=== PATIENT | female | born 1970 | race Caucasian/White ===

== ENCOUNTER 2017-08-24 05:15 | Inpatient (IN) ==
[2017-08-24 06:00] LABS: Basophils % 0.3 %; Eosinophils % 0.4 %; Hematocrit 36.2 % (35.3-44.9); Immature Granulocytes % 0.3 % (0-4); Lymphocytes # 2.3 K/mcL (0.6-4.6); Lymphocytes % 32.8 %; Mean Corpuscular HGB Conc 33.1 g/dL (31.6-35.5); Mean Corpuscular Hemoglobin 30.2 pg (28.0-33.3); Mean Platelet Volume 9.4 fL (9.4-12.4); Monocytes # 0.5 K/mcL (0.0-1.3); Monocytes % 7.7 %; Platelet Count 257 K/mcL (140-400); Red Blood Count 3.98 M/mcL (3.82-4.97); Red Cell Distribution Width 12.6 % (11.5-14.5); Segmented Neutrophils % 58.5 %
[2017-08-24 06:02] LABS: Bilirubin,Urine Negative (Negative); Blood,Urine Negative (Negative); Clarity,Urine Cloudy (Clear); Color,Urine Yellow (Yellow); Glucose,Urine (UA) Normal (Normal); Ketones,Urine Negative (Negative); Leukocyte Esterase,Urine Negative (Negative); Nitrite,Urine Negative (Negative); Protein,Urine Negative (Neg-Trace); Specific Gravity,Urine 1.026 (1.010-1.025); Urobilinogen,Urine Normal (Normal)
[2017-08-24 06:09] LABS: Amphetamine Screen,Urine Positive ng/mL (Cutoff=1000); Bacteria,Urine Moderate per hpf (None-Few); Barbiturate Screen,Urine Negative ng/mL (Cutoff=200); Benzodiazepines Screen,Urine Negative ng/mL (Cutoff=200); Cannabinoid Screen,Urine Positive ng/mL (Cutoff = 50); Cocaine Screen,Urine Negative ng/mL (Cutoff= 300); Hyaline Casts,Urine None Seen per lpf (None-Few); Opiate Screen,Urine Negative ng/mL (Cutoff=300); Phencyclidine Screen,Urine Negative ng/mL (Cutoff=25); Squamous Epithelial Cell,Urine Many per lpf (None-Few)
[2017-08-24 06:16] LABS: BUN/Creatinine Ratio 17 (6-26); Blood Urea Nitrogen 14 mg/dL (7-20); Calcium 9.1 mg/dL (8.6-10.8); Carbon Dioxide 29 mEq/L (19-29); Chloride 105 mEq/L (98-109); Glucose 104 mg/dL (70-99); Osmolality,Calculated 289 (280-300); Potassium 4.3 mEq/L (3.5-4.5); Sodium 139 mEq/L (136-145); eGFR For African Americans > 60 (> 60); eGFR For Non-African Americans > 60 (> 60)
[2017-08-24 06:17] LABS: Ethanol < 10 mg/dL (0-10); Salicylate < 5.0 mg/dL (15-30)
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
[2017-08-24] MEDS ORDERED: hydrOXYzine pamoate 25 MG CAPSULE PO PRN (12:37)
[2017-08-24] MEDS ORDERED: Haloperidol Lactate 5 MG/ML VIAL IM PRN (12:37)
[2017-08-24] MEDS ORDERED: *HR* LORazepam 2 MG/ML VIAL IM PRN (12:37)
[2017-08-24] MEDS ORDERED: MOM Conc 10 ML UD.LIQ PO PRN (12:37)
[2017-08-24] MEDS ORDERED: *HR* LORazepam 1 MG TABLET PO PRN (12:37)
[2017-08-24] MEDS ORDERED: Mag Hydrox/Al Hydrox/Simeth 30 ML UDC PO PRN (12:37)
[2017-08-24] MEDS ORDERED: Ibuprofen 400 MG TABLET PO PRN (12:37)
[2017-08-24] MEDS: Nicotine 21 MG PATCH.TD24 TD SCH (15:36)
[2017-08-24] MEDS: Gabapentin 300 MG CAPSULE PO SCH ×2 (15:36→20:28)
[2017-08-24] MEDS: Mirtazapine 15 MG TABLET PO SCH (20:28)
[2017-08-24] MEDS ORDERED: traZODone 50 MG TABLET PO PRN (21:00)
[2017-08-25] MEDS: Nicotine 21 MG PATCH.TD24 TD SCH (09:57)
[2017-08-25] MEDS: Gabapentin 300 MG CAPSULE PO SCH ×3 (09:58→21:04)
--- NOTE | 2017-08-25 12:30 | Psychiatry Progress Note ---
Date of Encounter: 08/25/17 Time of Encounter: 10:50 Subjective Interval history: Pratima is seen today for follow-up of her depression as well as her homicidal ideations. Patient reports that her mood has improved somewhat since admission to the hospital. She still feels depressed and anxious at times. She does report improvement since starting the medications especially the Remeron. Patient reports improvement in her sleep cycle. Her appetite has been good since arrival to the hospital. She does admit to a lot of stress especially relating to her boyfriend. Boyfriend is still staying at her home and she does not want him to be there and she is afraid to go back to her home while he is there. She thinks she may have a friend she can stay with her when she is stable for discharge. Patient will be looking into getting a restraining order against her boyfriend. Review of Systems Constitutional: Denies: fever, chills, weakness, weight change Eyes: Denies: eye pain, vision change Ears, Nose, Throat: Denies: ear pain, throat pain, dental pain, hearing loss, congestion Cardiovascular: Denies: chest pain, palpitations, dyspnea on exertion Respiratory: Denies: cough, dyspnea, wheezes Gastrointestinal: Denies: abdominal pain, nausea, vomiting, diarrhea, constipation Musculoskeletal: Denies: joint swelling, joint pain Neurological: Denies: headache, weakness, numbness, memory loss Psychiatric: Reports: depression, anxiety, change in appetite, anhedonia, hopelessness, irritability, panic attacks. Denies: suicidal ideation, homicidal ideation Objective: Exam Patient orientation: Yes Person, Yes Time, Yes Place Level of alertness: Alert Patient appearance: Appropriate Behavior: calm, cooperative Psychomotor activity: Normal Eye contact: Maintains Eye Contact Mood description: Depressed Affect description: dysphoric Speech pattern: Normal rate, Normal rhythm, Normal tone Speech volume: Normal Thought process: Intact, Logical Thought content: No Suicidal ideation, No Homicidal ideation Perceptual disturbances: No Auditory hallucinations, No Visual hallucinations Judgment: Limited Insight: Minimal Results - Vital Signs Vital Signs: Temp Pulse Resp BP Pulse Ox 97.6 F 84 20 89/57 99 08/25/17 09:00 08/25/17 09:00 08/25/17 09:00 08/25/17 09:00 08/24/17 09:31 Assessment and Plan (1) MDD (major depressive disorder), recurrent severe, without psychosis Current visit: Yes Status: Acute Plan: Continue hospitalization, Close observation, Suicide Precautions per unit protocol, Encourage participation in unit milieu, Group Therapy, Monitor sleep, Monitor appetite Additional Plan: Continue current medications. Patient mood improving slightly. She now denies homicidal ideations. Denies access to guns or weapons. She would like to get a restraining order on her boyfriend but does not want to harm him. Continue to monitor with plans for discharge tomorrow if patient continues to improve. . Risks, benefits, side effects, alternatives discussed w/pt: Yes Patient agreeable to treatment: Yes (2) PTSD (post-traumatic stress disorder) Current visit: Yes Status: Acute Plan: Continue hospitalization, Close observation, Suicide Precautions per unit protocol, Encourage participation in unit milieu, Group Therapy, Monitor sleep, Monitor appetite Additional Plan: Prazosin helping with nightmares and sleep. Monitor for side effects. Risks, benefits, side effects, alternatives discussed w/pt: Yes Patient agreeable to treatment: Yes (3) Polysubstance abuse Current visit: Yes Status: Acute Additional Plan: Encouraged patient to discontinue drug use. Risks, benefits, side effects, alternatives discussed w/pt: Yes Patient agreeable to treatment: Yes Consult Discharge Plan - Plan Referrals: NONE,PCP [Primary Care Provider] -
[2017-08-25] MEDS: Mirtazapine 15 MG TABLET PO SCH (21:04)
[2017-08-26] MEDS: Gabapentin 300 MG CAPSULE PO SCH (08:59)
[2017-08-26] MEDS: Nicotine 21 MG PATCH.TD24 TD SCH (08:59)
[2017-08-26 10:12] VITALS: BP 99/65
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
== END 2017-08-26 12:00 | disposition home or self-care (01) | DRG 751 ==
LOC: EMEROO 05:15 → 1ANU 09:17 → INTOOBSV 09:17 → 1ANU 10:40 → SUATTDRO 08-25 09:43
PROVIDERS: ADMIT Psychiatry & Neurology Psychiatry; ATTEND Student in an Organized Health Care Education/Training Program

== ENCOUNTER 2021-07-05 07:52 | Observation (INO) ==
[2021-07-05] MEDS: 0.9 % Sodium Chloride 1,000 ML IVC SCH ×4 (08:31→20:44)
[2021-07-05 09:00] LABS: Basophils % 0.4 %; Eosinophils % 0.8 %; Hemoglobin 14.3 g/dL (11.5-15.4); INR 1.1; Immature Granulocytes % 0.2 % (0-4); Lymphocytes # 1.8 K/mcL (0.6-4.6); Lymphocytes % 34.7 %; Mean Corpuscular HGB Conc 33.3 g/dL (31.6-35.5); Mean Corpuscular Volume 90.1 fL (83.0-100.0); Monocytes # 0.2 K/mcL (0.0-1.3); Monocytes % 3.7 %; Neutrophils # 3.1 K/mcL (1.6-8.9); Platelet Count 295 K/mcL (140-400); Prothrombin Time 12.4 Seconds (9.4-12.1); Red Blood Count 4.77 M/mcL (3.82-4.97); Red Cell Distribution Width 12.5 % (11.5-14.5); Segmented Neutrophils % 60.2 %; White Blood Count 5.2 K/mcL (4.3-11.1)
[2021-07-05 09:05] LABS: Bilirubin,Urine Negative (Negative); Blood,Urine Negative (Negative); Clarity,Urine Clear (Clear); Color,Urine Dark-Yellow (Yellow); Glucose,Urine (UA) Normal (Normal); Ketones,Urine Negative (Negative); Leukocyte Esterase,Urine Negative (Negative); Nitrite,Urine Negative (Negative); PH,Urine 6.5 pH Units (5.0-8.0); Protein,Urine Negative (Neg-Trace); Urobilinogen,Urine Normal (Normal)
[2021-07-05 09:12] LABS: Alanine Aminotransferase 39 Units/L (7-52); Albumin 4.2 g/dL (3.5-5.7); Albumin/Globulin Ratio 1.2 (1.1-2.2); Alkaline Phosphatase 106 Units/L (34-104); Aspartate Amino Transferase 33 Units/L (13-39); BUN/Creatinine Ratio 8 (6-26); Bilirubin,Direct 0.1 mg/dL (0.0-0.2); Bilirubin,Indirect 0.2 mg/dL (0.0-1.0); Bilirubin,Total 0.3 mg/dL (0.3-1.0); Blood Urea Nitrogen 7 mg/dL (6-20); Calcium 9.5 mg/dL (8.6-10.3); Carbon Dioxide 27 mEq/L (23-29); Chloride 101 mEq/L (98-107); Globulin 3.5 g/dL (2.4-3.5); Glucose 115 mg/dL (70-105); Lipase 45 Units/L (11-82); Magnesium 1.8 mg/dL (1.6-2.6); Osmolality,Calculated 277 (280-300); Phosphorous 3.5 mg/dL (2.7-4.5); Potassium 4.1 mEq/L (3.5-5.1); Sodium 134 mEq/L (136-145); Total Protein 7.7 g/dL (6.4-8.9); eGFR For African Americans > 60 (> 60); eGFR For Non-African Americans > 60 (> 60)
[2021-07-05 09:37] LABS: Adenovirus Not Detected (Not Detect); Bordetella Pertussis Not Detected (Not Detect); Chlamydophila pneumoniae Not Detected (Not Detect); Coronavirus 229E Not Detected (Not Detect); Coronavirus HKU1 Not Detected (Not Detect); Coronavirus NL63 Not Detected (Not Detect); Coronavirus OC43 Not Detected (Not Detect); Human Metapneumovirus Not Detected (Not Detect); Human Rhinovirus/Enterovirus Not Detected (Not Detect); Influenza A Subtype 2009 H1 Not Detected (Not Detect); Influenza B Not Detected (Not Detect); Mycoplasma pneumoniae Not Detected (Not Detect); Parainfluenza Virus 1 Not Detected (Not Detect); Parainfluenza Virus 2 Not Detected (Not Detect); Parainfluenza Virus 3 Not Detected (Not Detect); Parainfluenza Virus 4 Not Detected (Not Detect); Respiratory Syncytial Virus Not Detected (Not Detect); SARS-CoV-2 Not Detected (Not Detect)
[2021-07-05] MEDS ORDERED: Isovue-370 500 ML BOTTLE IVP ONE ×2 (11:36→16:07)
[2021-07-05] MEDS ORDERED: Ibuprofen 600 MG TABLET PO ONE (11:37)
[2021-07-05] MEDS ORDERED: cefTRIAXone 2,000 MG in 0.9 % Sodium Chloride Mini Bag 100 ML IVPB ONE (12:00)
[2021-07-05 14:06] LABS: Red Blood Cell,CSF < 2000 RBC/mcL
[2021-07-05 14:16] LABS: Appearance,CSF Clear (Clear); Basophils,CSF 0 %; Eosinophils,CSF 0 %; Lymphocytes,CSF 0 %; Monocytes,CSF 0 %
[2021-07-05 14:19] LABS: Glucose,CSF 67 mg/dL (40-70); Total Protein,CSF 39 mg/dL (15-45)
[2021-07-05] MEDS ORDERED: Ondansetron 4 MG/2 ML VIAL IVP PRN (15:48)
[2021-07-05] MEDS ORDERED: Naloxone 0.4 MG/ML INJ IVP PRN (15:48)
[2021-07-05] MEDS ORDERED: Acetaminophen 325 MG TABLET PO PRN (15:48)
[2021-07-05] MEDS ORDERED: Vancomycin 1,500 MG/265 ML IV.SOLN IVPB ONE (16:44)
[2021-07-05] MEDS ORDERED: Vancomycin 1,500 MG/265 ML IV.SOLN IVPB SCH (17:00)
[2021-07-05 17:08] LABS: Amphetamine Screen,Urine Positive ng/mL (Cutoff=1000); Barbiturate Screen,Urine Negative ng/mL (Cutoff=200); Benzodiazepines Screen,Urine Negative ng/mL (Cutoff=200); Cannabinoid Screen,Urine Positive ng/mL (Cutoff = 50); Cocaine Screen,Urine Negative ng/mL (Cutoff= 300); Opiate Screen,Urine Negative ng/mL (Cutoff=300); Phencyclidine Screen,Urine Negative ng/mL (Cutoff=25)
[2021-07-05] MEDS: *HR* Heparin 5,000 UNIT/ML VIAL SQ SCH (20:44)
[2021-07-06 01:59] LABS: Basophils % 0.4 %; Eosinophils # 0.1 K/mcL (0.0-0.6); Eosinophils % 5.5 %; Hematocrit 37.8 % (35.3-44.9); Hemoglobin 12.1 g/dL (11.5-15.4); Immature Granulocytes % 0.4 % (0-4); Lymphocytes # 0.7 K/mcL (0.6-4.6); Lymphocytes % 28.9 %; Mean Corpuscular Hemoglobin 29.2 pg (28.0-33.3); Mean Corpuscular Volume 91.3 fL (83.0-100.0); Mean Platelet Volume 10.3 fL (9.4-12.4); Monocytes # 0.2 K/mcL (0.0-1.3); Monocytes % 7.2 %; Neutrophils # 1.4 K/mcL (1.6-8.9); Platelet Count 210 K/mcL (140-400); Red Blood Count 4.14 M/mcL (3.82-4.97); Red Cell Distribution Width 12.8 % (11.5-14.5); Segmented Neutrophils % 57.6 %; White Blood Count 2.4 K/mcL (4.3-11.1)
[2021-07-06 02:16] LABS: BUN/Creatinine Ratio 12 (6-26); Blood Urea Nitrogen 9 mg/dL (6-20); Calcium 7.9 mg/dL (8.6-10.3); Carbon Dioxide 24 mEq/L (23-29); Chloride 107 mEq/L (98-107); Glucose 102 mg/dL (70-105); Osmolality,Calculated 281 (280-300); Potassium 3.9 mEq/L (3.5-5.1); Sodium 136 mEq/L (136-145); eGFR For African Americans > 60 (> 60); eGFR For Non-African Americans > 60 (> 60)
[2021-07-06] MEDS: *HR* Heparin 5,000 UNIT/ML VIAL SQ SCH ×3 (05:43→20:04)
[2021-07-06] MEDS: 0.9 % Sodium Chloride 1,000 ML IVC SCH ×3 (07:02→20:04)
[2021-07-06] MEDS: Vancomycin 1,250 MG/262.5 ML IV.SOLN IVPB SCH ×2 (07:23→20:03)
[2021-07-06] MEDS ORDERED: Nicotine 14 MG PATCH.TD24 TD SCH (09:00)
[2021-07-06] MEDS ORDERED: cefTRIAXone 2,000 MG in Water for inj. (sterile) 20 ML IVP SCH (11:00)
[2021-07-07 02:22] VITALS: TEMP 97.8; O2SAT 97
[2021-07-07] MEDS ORDERED: Albumin 25% 25gram/100mL 25 GM/100 ML IV.SOLN IVPB ONE (02:53)
[2021-07-07] MEDS: Vancomycin 1,250 MG/262.5 ML IV.SOLN IVPB SCH (05:41)
[2021-07-07] MEDS ORDERED: Lurasidone 20 MG TABLET PO SCH (09:00)
[2021-07-07 09:18] LABS: Basophils % 0.8 %; Eosinophils # 0.2 K/mcL (0.0-0.6); Eosinophils % 8.9 %; Hematocrit 36.5 % (35.3-44.9); Hemoglobin 11.7 g/dL (11.5-15.4); Immature Granulocytes % 0.4 % (0-4); Lymphocytes # 1.3 K/mcL (0.6-4.6); Lymphocytes % 48.4 %; Mean Corpuscular HGB Conc 32.1 g/dL (31.6-35.5); Mean Corpuscular Volume 90.6 fL (83.0-100.0); Mean Platelet Volume 10.1 fL (9.4-12.4); Monocytes # 0.2 K/mcL (0.0-1.3); Monocytes % 8.9 %; Platelet Count 201 K/mcL (140-400); Red Blood Count 4.03 M/mcL (3.82-4.97); Segmented Neutrophils % 32.6 %; White Blood Count 2.6 K/mcL (4.3-11.1)
[2021-07-07 09:33] LABS: BUN/Creatinine Ratio 12 (6-26); Blood Urea Nitrogen 8 mg/dL (6-20); Calcium 8.7 mg/dL (8.6-10.3); Carbon Dioxide 26 mEq/L (23-29); Chloride 111 mEq/L (98-107); Glucose 111 mg/dL (70-105); Osmolality,Calculated 289 (280-300); Potassium 4.5 mEq/L (3.5-5.1); Sodium 140 mEq/L (136-145); eGFR For African Americans > 60 (> 60); eGFR For Non-African Americans > 60 (> 60)
[2021-07-07 09:59] VITALS: BP 143/86; PULSE 85
[2021-07-07 10:04] LABS: Neutrophils # 0.9 K/mcL (1.6-8.9)
[2021-07-07 10:13] LABS: Platelet Estimate Normal (Normal); Reactive Lymphocytes Present (Not Present)
== END 2021-07-07 10:23 | disposition left against medical advice (07) ==
LOC: EMEROOARM 07:52 → 3BNU 07:52 → SUATTDRO 18:18 → 3BNU 20:04
PROVIDERS: ADMIT Student in an Organized Health Care Education/Training Program; ATTEND Internal Medicine